=== PATIENT | female | born 1970 | race Hispanic/Latino ===

== ENCOUNTER 2017-08-25 12:18 | Emergency (ER) | payer OTHER ==
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
[2017-08-25 14:52] VITALS: BP 132/88
== END 2017-08-25 14:59 ==
LOC: ERH 12:18
DX: S20.212A Contusion of left front wall of thorax, initial encounter (principal); R07.81 Pleurodynia; W19.XXXA Unspecified fall, initial encounter; Y93.H2 Activity, gardening and landscaping
CPT/HCPCS: 71046; 71100-LT; 81003; 81025